=== PATIENT | female | born 1985 | race Caucasian/White ===

== ENCOUNTER 2016-11-24 07:31 | Day surgery (SDC) | payer OTHER ==
[2016-11-17 17:58] VITALS: BMI 44.0
[~2016-11-24] VITALS: Ht 177.8 cm; Wt 140.0 kg
[2016-11-24] VITALS (11 sets, daily range): BP systolic 120–155; BP diastolic 55–70; PULSE 68–116; RESP 18–27; Ht 177.8 cm; Wt 140.0 kg
[~2016-11-24 07:31] MED LIST: CEFAZOLIN 1 GM INJ ONE; ROCURONIUM 50 MG INJ ONE; SEVOFLURANE 15 MIN ONE; hydrALAzine 20 MG INJ ONE
[2016-11-24] MEDS ORDERED: GLYCOPYRROLATE 0.4 MG INJ ONE (07:59)
[2016-11-24] MEDS ORDERED: ROCURONIUM 50 MG INJ ONE (07:59)
[2016-11-24] MEDS ORDERED: FENTAnyl 50 MCG/ML VIAL ONE ×2 (07:59→10:57)
[2016-11-24] MEDS ORDERED: PROPOFOL 20 ML ONE (07:59)
[2016-11-24] MEDS ORDERED: MIDAZOLAM 1 MG/ML 2 ML INJ ONE (07:59)
[2016-11-24] MEDS ORDERED: LIDOCAINE 2% (SDV) 5 ML INJ ONE (07:59)
[2016-11-24] MEDS ORDERED: NEOSTIGMINE 3 MG/3 ML SYRINGE ONE (07:59)
[2016-11-24] MEDS ORDERED: DEXAMETHASONE 4 MG/ML 1 ML INJ ONE (08:00)
[2016-11-24] MEDS ORDERED: SUGAMMADEX SODIUM 200 MG/2 ML VIAL IV ONE (08:00)
[2016-11-24] MEDS ORDERED: ONDANSETRON 4 MG INJ ONE (08:00)
[2016-11-24] MEDS ORDERED: CEFAZOLIN 1 GM INJ ONE (08:02)
[2016-11-24] MEDS ORDERED: NEOMYC/POLYMYX/BACIT 30 GM OINT ONE (08:59)
[2016-11-24] MEDS ORDERED: ROPIVACAINE 0.5 % 30 ML VIAL ONE ×2 (08:59→09:30)
[2016-11-24] MEDS ORDERED: BUPIVACAINE 0.5% (SDV) 30 ML INJ ONE (08:59)
[2016-11-24] MEDS ORDERED: SUCCINYLCHOLINE CHLORIDE 100 MG/5 ML SYG IV ONE (09:09)
--- NOTE | 2016-11-24 09:35 | HPN ---
Date/Time of Note Date/Time of Note DATE: 11/24/16 TIME: 09:35 Interval H&P Admission Note Pt. seen H&P reviewed: No system changes LINDSEY GONGORA MD Nov 24, 2016 09:35
[2016-11-24] MEDS ORDERED: OXYCODONE/ACETAMINOPHEN (5/325) TAB PO PRN ×3 (10:00→11:00)
[2016-11-24] MEDS ORDERED: morphine 2 MG INJ IV PRN ×2 (10:00)
[2016-11-24] MEDS ORDERED: THROMBIN 5000 UNIT VIAL ONE (10:01)
[2016-11-24] MEDS ORDERED: CA CHLORIDE 10% 10 ML SYRINGE ONE (10:01)
[2016-11-24] MEDS ORDERED: DIPHENHYDRAMINE 50 MG INJ IV PRN (11:00)
[2016-11-24] MEDS ORDERED: MEPERIDINE 25 MG INJ IV PRN (11:00)
[2016-11-24] MEDS ORDERED: HYDROmorphONE (0.2 MG/ML) 10ML SYG IV PRN ×3 (11:00)
[2016-11-24] MEDS ORDERED: MIDAZOLAM 1 MG/ML 2 ML INJ IV PRN (11:00)
[2016-11-24] MEDS ORDERED: hydrALAzine 20 MG INJ IV PRN (11:00)
[2016-11-24] MEDS ORDERED: morphine (1 MG/ML) 10ML SYRINGE IV PRN ×3 (11:00)
[2016-11-24] MEDS ORDERED: LABETALOL HCL 20MG INJ IV PRN (11:00)
[2016-11-24] MEDS ORDERED: EPHEDrine SULFATE 50 MG/5 ML SYG IV PRN (11:00)
[2016-11-24] MEDS ORDERED: ATROPINE 1 MG/10 ML SYRINGE IV PRN (11:00)
[2016-11-24] MEDS ORDERED: FENTAnyl 50 MCG/ML VIAL IV PRN ×2 (11:00)
--- NOTE | 2016-11-24 13:14 | SIPON ---
Date/Time of Note Date/Time of Note DATE: 11/24/16 TIME: 13:12 Operative Report Preoperative Diagnosis Left knee medial meniscal root tear Postoperative Diagnosis Left knee medial meniscal root tear Operation/Procedure Performed Left knee arthroscopy, chondroplasty, repair of medial meniscal root tear with application of PRP Surgeon: LINDSEY GONGORA MD Anesthesia Type: general, other (Fascial iliacus block) Estimated Blood Loss: 0 - 10 ml's Transfusion Required: no Specimen: none Grafts/Implants brenner [employer] newphew fast t fix x3 with meniscal button Arthrex PRP at 4% HCt Complications: no LINDSEY GONGORA MD Nov 24, 2016 13:14
--- NOTE | 2016-11-24 13:15 | OPR ---
Date/Time of Note Date/Time of Note DATE: 11/24/16 TIME: 13:14 Operative Report Procedure Date: Nov 24, 2016 Preoperative Diagnosis Left knee medial meniscal root tear Postoperative Diagnosis Left knee medial meniscal root tear Operation Performed Left knee arthroscopy, chondroplasty, repair of medial meniscal root tear with application of PRP Surgeon: LINDSEY GONGORA MD Anesthesia Type: general, other (Fascial iliacus block) Anesthesiologist: MARK ANTHONY WALKER MD Tourniquet Time: 125 min Estimated Blood Loss: 0 - 10 ml's Transfusion Required: no Specimen: none Grafts/Implants brenner [employer] nephew fast t fix x3 with Arthrex meniscal button Complications: no Pt Condition Post Procedure: stable Disposition: PACU Procedure Description RISK NOTE: Patient was explained the risks and benefits of the surgery in the patients [place] language, including not limited to infection, bleeding, loss of limb, loss of life, need for future surgery, risk of anesthesia, risk of injury to the blood vessels and nerves, ligaments or tendons, and risk of deep vein thrombosis. Patient understood these risks and wished to proceed with the surgery. INDICATIONS: The patient is a 31-year-old female with a recent history of right knee giving way. She diagnosed on MRI with a meniscal root tear medially. The patient has restored their range of motion and is now brought to the operating room for possible partial medial and lateral meniscectomy versus medial and lateral meniscal repair, chondroplasty and debridement. The risks, benefits, and alternatives of surgery were discussed with the patient. The risks included but were not limited to infection, bleeding, damage to vessels and nerves, loss of motion, continued pain, re-tear of the meniscus, deep venous thrombosis, and complications due to anesthesia including nerve injury, myocardial infarction, stroke, , etc. The patient stated understanding of the nature of the surgical procedure and gave written and verbal consent to proceed. PROCEDURE: The patient was brought to the operating room and placed supine on the operating room table. General anesthesia was induced and a fascia iliacus block was placed. The left lower extremity was examined under anesthesia. Range of motion was 0 degrees of extension to 135 degrees of flexion. There was no varus or valgus or posterolateral instability. She had no instability to varus or valgus stress at 0 or 30 degrees. She had a negative Zonia and anterior drawer with a negative pivot shift Following exsanguination with an Esmarch bandage the tourniquet was inflated to 250 mm of mercury. The left lower extremity was then prepped and draped in the usual fashion. A tourniquet was placed proximally on the thigh over a bias stockinette. A standard anterolateral parapatellar stab wound was created. The knee joint was entered with a blunt-tipped obturator, followed by the 30-degree video arthroscope. An anteromedial portal was established under arthroscopic control. A routine arthroscopic survey was performed. The suprapatellar pouch was unremarkable. The undersurface of the patella was well-preserved. The patella appeared to track centrally within the trochlear groove. Trochlea showed no chondromalacia. The medial and lateral gutters were inspected and there was no loose body seen. There was no hypertrophied plica. The popliteal hiatus was entered and was unremarkable. The lateral compartment was entered. The lateral femoral condyle exhibited no chondromalacia and the lateral tibial plateau appeared to have intact cartilage. The lateral meniscus was probed and appeared to be intact with no evidence of any tear. The intercondylar notch was visualized. The anterior cruciate ligament was intact and probed to be stable. Posteromedially there was no loose body seen. The posterior cruciate ligament was visualized and appeared intact. The medial compartment was entered. The articular surfaces of the medial femoral condyle and medial tibial plateau were visualized. 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 The medial meniscus was visualized and appeared to have a tear of the posterior horn with an avulsion at the root. The tear was probed and found to be unstable. The root was rasped to enhance healing Using a motorized shaver a limited notchplasty was performed, a partial reverse notchplasty was performed. A Vector guide was placed intra-articularly. The vector guide hook was placed over the back of the tibia at the desired location of the meniscal root repair. The flip cutter drill was then drilled up to the meniscal root attachment site and flipped and pulled back approximately 20 mm. The knee scorpion suture passer initially was used to create a cinch stitch, followed by 3 [employer] fast T fix meniscal repair devices used to obtain a luggage tag suture repair. The SutureLasso needle was then shuttled and the sutures were shuttled out the anterior medial tibia and secured over to whole metal button. The meniscus medially was reprobed and found to be stable and firm and reattached. At the completion of surgery the patient had a firm stable Zonia. There was a negative pivot shift. She had a 0 firm Zonia and a negative pivot shift. There was no evidence for any roof or lateral wall impingement. The tourniquet was deflated. The knee was irrigated with two liters of lactated Ringer's solution. Excess fluid was drained. The tibial wounds were then copiously irrigated with bacitracin solution and closed in layers with #0, #2-0 and #3-0 Vicryl. The skin was reapproximated with #4-0 Monocryl. The knee was injected with platelet rich plasma that had been spun at 4% hematocrit. A dry sterile dressing was applied, followed by a bulky bandage placed over the bulky bandage insuring no contact with the skin. A postoperative TROM brace was applied locked in full extension. The patient was awakened in the Operating Room and transported to the Recovery Room in satisfactory condition. She appeared to tolerate the procedure well. At the completion of surgery the patient had soft compartments, palpable pulses distally, and brisk capillary refill. There were no complications noted. LINDSEY GONGORA MD Nov 24, 2016 13:14
[2016-11-24] MEDS: ONDANSETRON 4 MG INJ IV PRN ×2 (13:49→15:49)
== END 2016-11-24 17:37 | disposition home or self-care (01) ==
LOC: SDS 07:31
PROVIDERS: ATTEND Orthopaedic Surgery
DX: M23.222 Derangement of posterior horn of medial meniscus due to old tear or injury, left knee (principal); M94.262 Chondromalacia, left knee; E66.01 Morbid (severe) obesity due to excess calories; Z68.41 Body mass index [BMI] 40.0-44.9, adult
CPT/HCPCS: 29882; 82306; 84703; C1713; J0360; J0690; J1100; J1170; J2175; J2250; J2405; J2795; J3010; Z7512; Z7610; J2710; J7999